=== PATIENT | female | born 1965 | race Caucasian/White ===

== ENCOUNTER 2020-11-04 09:45 | Outpatient (CLI) | payer OTHER | END 2020-11-04 09:46 | disposition home or self-care (01) | LOC: CSHMAMMO 09:45 | PROVIDERS: ATTEND Internal Medicine | DX: Z12.31 Encounter for screening mammogram for malignant neoplasm of breast (principal) | CPT/HCPCS: 77063; 77067 ==

== ENCOUNTER 2022-02-21 14:53 | Outpatient (CLI) | payer OTHER | END 2022-02-21 14:54 | disposition home or self-care (01) | LOC: CSHMAMMO 14:53 | PROVIDERS: ATTEND Internal Medicine | DX: Z12.31 Encounter for screening mammogram for malignant neoplasm of breast (principal) | CPT/HCPCS: 77063; 77067 ==

== ENCOUNTER 2023-04-08 15:31 | Outpatient (CLI) | payer OTHER | END 2023-04-08 15:32 | disposition home or self-care (01) | LOC: CSHMAMMO 15:31 | PROVIDERS: ATTEND Internal Medicine | DX: Z12.31 Encounter for screening mammogram for malignant neoplasm of breast (principal) | CPT/HCPCS: 77063; 77067 ==

== ENCOUNTER 2024-02-11 08:43 | Emergency (ER) | payer OTHER ==
[2024-02-11] MEDS ORDERED: Amoxicillin/Potassium Clav 875 MG TAB ONE (09:03)
[2024-02-11] MEDS ORDERED: Acetaminophen 500 MG TAB ONE (09:03)
[2024-02-11] MEDS ORDERED: Boostrix 0.5 ML (Tdap) VIAL (>/=7 yrs of age) ONE (09:03)
[2024-02-11] MEDS ORDERED: Bacitracin 1 PK ONE (09:17)
== END 2024-02-11 09:37 | disposition home or self-care (01) ==
LOC: CSHERS 08:43
DX: S61.452A Open bite of left hand, initial encounter (principal); W54.0XXA Bitten by dog, initial encounter; Z23 Encounter for immunization
CPT/HCPCS: 90471; 90715

== ENCOUNTER 2024-05-07 14:26 | Outpatient (CLI) | payer OTHER | END 2024-05-07 14:27 | disposition home or self-care (01) | LOC: CSHMAMMO 14:26 | PROVIDERS: ATTEND Internal Medicine | DX: Z12.31 Encounter for screening mammogram for malignant neoplasm of breast (principal) | CPT/HCPCS: 77063; 77067 ==